=== PATIENT | female | born 1960 | race African-American/Black ===

== ENCOUNTER 2025-06-20 15:55 | Emergency (ER) | payer BC, SELFPAY ==
[2025-06-20 16:01] VITALS: BP 175/96; PULSE 99; RESP 18; TEMP 36.1; O2SAT 98; BMI 36.6
--- NOTE | 2025-06-20 16:41 | CRLHL7_ITS ---
For Patients: As a result of the Cures Act, medical imaging exams and procedure reports are released immediately into your electronic medical record. You may view this report before your referring provider. If you have questions, please contact your health care provider. Indication: Nontraumatic right hip pain. Technique: Right hip 3 views. Comparison: None. Findings: Bones: No fracture or dislocation. No worrisome osseous lesion. Sequelae of chronic osteitis pubis. 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 Soft tissues/pelvis: Right gluteal and bilateral iliac enthesopathy. Pelvic phleboliths. Otherwise normal. Impression: No acute or significant radiographic findings. Dictated by Johnathan Angel MD @ 06/20/2025 5:45:31 PM (Electronically Signed)
--- NOTE | 2025-06-20 17:15 | ED.GENADULT ---
HPI - General Adult General Date Seen: 06/20/25 Chief complaint: Hip Injury/Pain Stated complaint: R leg pain Time Seen by Provider: 06/20/25 16:18 Source: patient Mode of arrival: ambulatory Limitations: no limitations History of Present Illness HPI narrative: patient is a 65-year-old female presenting to the emergency department for right hip pain. She states the pain is been going on for the past 3 days causing her fall once today. She denies hitting her head. States she has pain with any movement and she feels like the pain is deeper into the joint of the right hip. Has never had pain like this before she states. Does not remember any injuries. The only thing she can think of is a couple daysbefore the pain started she helped someone move some heavy stuff around their house. denies any other injuries. Denies any numbness to the lower extremity. Denies any radiation of the pain up the back. Denies decreased strength in right knee or ankle. No other concerns noted. Related Data Home Medications ?Medication ?Instructions ?Recorded ?Confirmed amlodipine 10 mg tablet (Norvasc) 10 mg PO DAILY 06/20/25 06/20/25 cetirizine 10 mg tablet (24Hour 10 mg PO DAILY PRN 06/20/25 06/20/25 Allergy) Allergies Allergy/AdvReac Type Severity Reaction Status Date / Time No Known Drug Allergies Allergy Verified 06/20/25 16:01 Review of Systems Narrative: Pertinent systems reviewed and were negative unless stated in HPI Exam Narrative: Exam Narrative: Const: Well-nourished, Well-developed, in mild distress Eyes: PERRL, no conjunctival injection, and symmetrical lids HENT: Atraumatic external nose and ears. Moist mucous membranes. MSK:Extremities w/o deformity, Normal Active ROM To the right knee and ankle. Decreased active range of motion to the right hip. With passive range of motion has pain with internal rotation and external rotation but not much pain with flexion or extension Skin: Warm, Dry. No rashes or lesions. Neuro: Normal Muscle tone, No focal neurological deficits. Psych: Awake, Alert, & Oriented x3. Appropriate mood and affect. Const: Vital Signs, click to edit/add: Vital Signs - 24 hr 06/20/25 16:01 Temperature 96.9 F L Pulse Rate [Right Pulse Oximeter] 99 Respiratory Rate 18 Blood Pressure [Ri ght Upper Arm] 175/96 H Pulse Oximetry 98 Oxygen Delivery Me thod Room Air Course Vital Signs Vital signs: Initial Vital Signs Temperature 96.9 F L 06/20/25 16:01 Temperature Source Temporal Artery Scan 06/20/25 16:01 Pulse Rate 99 06/20/25 16:01 Respiratory Rate 18 06/20/25 16:01 Blood Pressure 175/96 H 06/20/25 16:01 Blood Pressure Mean 122 H 06/20/25 16:01 Blood Pressure Position Sitting 06/20/25 16:01 Pulse Oximetry 98 06/20/25 16:01 Oxygen Delivery Method Room Air 06/20/25 16:01 Vital Signs Temperature 96.9 F L 06/20/25 16:01 Pulse Rate 99 06/20/25 16:01 Respiratory Rate 18 06/20/25 16:01 Blood Pressure 175/96 H 06/20/25 16:01 Pulse Oximetry 98 06/20/25 16:01 Oxygen Delivery Method Room Air 06/20/25 16:01 Temperature 96.9 F L 06/20/25 16:01 Pulse Rate 99 06/20/25 16:01 Respiratory Rate 18 06/20/25 16:01 Blood Pressure 175/96 H 06/20/25 16:01 Pulse Oximetry 98 06/20/25 16:01 Oxygen Delivery Method Room Air 06/20/25 16:01 Medical Decision Making MDM Narrative Medical decision making narrative: patient is a 65-year-old female presenting for atraumatic right hip pain. She states the pain is deep in the hip joint. Makes this seem less likely to be a muscle strain. Could possibly be ligamentous injury or arthritis. Will do an x-ray to look for signs of arthritis. She is neurovascular intact. x-ray interpreted by myself and the radiologist independently shows only mild osteoarthritis of the hip joints. No other acute abnormalities. Symptoms appear to be related to a ligamentous injury. She 1 need to follow-up with orthopedics for the last. Will provider Toradol for pain control. She is agreeable to this plan. Imaging Data Right hip x-ray: Attestation: I have reviewed the pertinent imaging results. Radiologist's impression: Findings: Bones: No fracture or dislocation. No worrisome osseous lesion. Sequelae of chronic osteitis pubis. 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 Soft tissues/pelvis: Right gluteal and bilateral iliac enthesopathy. Pelvic phleboliths. Otherwise normal. Impression: No acute or significant radiographic findings. Dictated by Johnathan Angel MD @ 06/20/2025 5:45:31 PM Discharge Plan Discharge Clinical Impression: Acute pain of right hip Patient Disposition: Home, Self-Care Condition: Stable Instructions: Hip Pain (ED) Additional Instructions: your x-ray shows mild osteoarthritis. The pain seems more likely to be related to ligamentous injury. Follow-up with [facility]. Call them at . He also follow up with any orthopedic provider. Take the Toradol as needed for pain. while taking Toradol do not take other NSAIDs such as ibuprofen naproxen as they are the same class of drugs. You can take Tylenol. Prescriptions: No Action amlodipine [Norvasc] 10 mg tablet 10 mg PO DAILY cetirizine [24Hour Allergy] 10 mg tablet 10 mg PO DAILY PRN Follow Up/Referrals: Provider,Not a Local [Primary Care Provider, Family Practice] Stand Alone Forms: [facility] [employer] Info Instructions
== END 2025-06-20 18:17 | disposition home or self-care (01) ==
PROVIDERS: Emergency Provider Student in an Organized Health Care Education/Training Program
DX: M25.551 Pain in right hip (principal); M16.11 Unilateral primary osteoarthritis, right hip
CPT/HCPCS: 73502; 99283